=== PATIENT | female | born 1940 | race Caucasian/White ===

== ENCOUNTER → 2017-10-18 | Outpatient (CLI) | payer MEDICARE, OTHER | END | disposition home or self-care (01) | LOC: CDC 08:35 | DX: Z01.810 Encounter for preprocedural cardiovascular examination (principal); M17.12 Unilateral primary osteoarthritis, left knee; M25.562 Pain in left knee; I49.1 Atrial premature depolarization | CPT/HCPCS: 93000 ==

== ENCOUNTER 2017-11-05 21:13 | Inpatient (IN) | payer OTHER ==
[~2017-11-05] VITALS: Ht 154.9 cm; Wt 61.0 kg
[~2017-11-05 21:13] MED LIST: ALLEGRA-D 241 TABLET PO; BUSPAR5 MG PO; CO Q-1050 MG PO; COLACE100 MG PO; DICLO GEL 1%-X1 EACH TP; DILTIAZEM 24HR120 MG PO; ESTRACE42.5 GM VG; IRON325 M1 PO; LO-DOSE ASPIRIN81 M1 PO; LOTENSIN20 MG PO; LUTEIN6 M1 PO; METAMUCIL0.52 GM PO; MUCINEX DM ER1 EACH PO; PROBIOTIC1 EAC2 PO; SHINGRIX V50 MCG/0.5 IM; SINGULAIR10 MG PO; SYNTHROID50 MCG PO; TYLENOL ARTHRI650 MG PO; VITAMIN D31000 UNI2 PO; ZYLOPRIM100 MG PO; [UNRECOGNIZED DRUG - OTHER] VG
[2017-11-06 09:44] VITALS: BP 174/74
[2017-11-06 17:43] VITALS: BP 172/76
[2017-11-06 20:06] VITALS: BP 158/71
[2017-11-07 00:10] VITALS: BP 134/63
[2017-11-07 04:09] VITALS: BP 136/60
[2017-11-07 06:26] LABS: HEMATOCRIT 34.4 % (36.0-46.0); MCV 91.7 FL (83-99)
[2017-11-07 06:27] LABS: HEMOGLOBIN 11.4 G/DL (11.9-15.5)
[2017-11-07 06:48] LABS: CHLORIDE 99 MEQ/L (99-109); CREATININE 1.3 MG/DL (0.6-1.3); GFR ESTIMATE (CALCULATED) 42 mL/min/; GLUCOSE 141 mg/dL (70-99); POTASSIUM 4.4 MEQ/L (3.7-5.4); SODIUM 135 MEQ/L (136-147); UREA NITROGEN (BUN) 25 mg/dL (9-23)
[2017-11-07 08:30] VITALS: BP 129/60
[2017-11-07] MEDS ORDERED: ELIQUIS2.5 MG PO (10:12)
[2017-11-07] MEDS ORDERED: HYDROCODON-ACE1 EAC7 PO (10:12)
[2017-11-07 12:23] VITALS: BP 132/58
[2017-11-07 15:54] VITALS: BP 138/64
[2017-11-07 20:20] VITALS: BP 113/58
[2017-11-08] VITALS (7 sets, daily range): BP systolic 121–166; BP diastolic 63–74
[2017-11-08 06:29] LABS: HEMATOCRIT 28.8 % (36.0-46.0); HEMOGLOBIN 9.7 G/DL (11.9-15.5); MCV 91.7 FL (83-99)
[2017-11-09 04:14] VITALS: BP 155/70
[2017-11-09 07:51] VITALS: BP 154/67
[2017-11-09 12:05] VITALS: BP 160/67
== END 2017-11-09 12:06 | DRG 470 ==
LOC: ENRESERV 21:13 → 2SOUTH 11-06 09:09 → 3WEST 11-06 09:09 → 2SOUTH 11-06 13:43 → 3WEST 11-06 17:33
PROVIDERS: Orthopaedic Surgery
PROC: 0SRD0J9 Replacement of Left Knee Joint with Synthetic Substitute, Cemented, Open Approach (ICD-10-PCS; principal; 2017-11-06)
DX: M17.12 Unilateral primary osteoarthritis, left knee (principal); E03.9 Hypothyroidism, unspecified; I10 Essential (primary) hypertension
CPT/HCPCS: 71045; 80048; 85014; 85018; C1713; J0690; J1100; J1885; J2250; J2405; J2765; J2795; J3010; J7050; S0020